=== PATIENT | male | born 1965 | race Caucasian/White ===

== ENCOUNTER → 2022-04-25 | Outpatient (REF) | LOC: M PLAIMG 12:31 | PROVIDERS: ATTEND Internal Medicine | DX: Z00.00 Encounter for general adult medical examination without abnormal findings (principal) ==

== ENCOUNTER → 2023-03-12 | Outpatient (REF) | payer OTHER, MEDICAID | LOC: M SFHCDERM 12:17 | PROVIDERS: ATTEND Physician Assistant | DX: C44.622 Squamous cell carcinoma of skin of right upper limb, including shoulder (principal) ==

== ENCOUNTER → 2023-06-12 | Outpatient (REF) | payer OTHER, MEDICAID | LOC: M SFHCDERM 17:49 | PROVIDERS: ATTEND Physician Assistant | DX: L72.11 Pilar cyst (principal) ==